=== PATIENT | female | born 1940 | race Asian ===

== ENCOUNTER 2024-01-10 14:45 | Inpatient (IN) | payer MEDICARE ==
[~2024-01-10] VITALS: Ht 157.5 cm; Wt 52.6 kg
[2024-01-10] MEDS ORDERED: Ondansetron 4 MG/2 ML VIAL IV ONE (15:00)
[2024-01-10] MEDS ORDERED: LR 1,000 ML IV ONE ×2 (15:00→18:00)
[2024-01-10] MEDS ORDERED: Morphine 4 MG/ML VIAL IV ONE (15:00)
[2024-01-10] MEDS ORDERED: Acetaminophen 500 MG TAB PO ONE (15:08)
[2024-01-10 15:55] LABS: MEAN CELL VOLUME 99 fl (80.0-100.0); MEAN CORPUSCULAR HEMOGLOBIN 33 pg (27-31); MEAN CORPUSCULAR HGB CONC 33 g/dl (33.0-37.0); PLATELET COUNT 116 K/mm3 (130-400); RED BLOOD COUNT 3.67 M/mm3 (4.10-5.30); REDCELL DISTRIBUTION WIDTH-CV 13.1 % (11.5-14.5)
[2024-01-10 15:59] LABS: HEMATOCRIT 36.3 % (37.0-47.0)
[2024-01-10 16:00] LABS: ALBUMIN 3.6 g/dL (3.4-4.8); BILIRUBIN,TOTAL 0.6 mg/dL (0.2-1.2); CALCIUM 9.6 mg/dL (8.4-10.2); CREATININE, serum 2.35 mg/dL (0.57-1.11); POTASSIUM 4.3 mEq/L (3.5-4.5); TOTAL PROTEIN 7.3 g/dl (6.2-8.1)
[2024-01-10 16:22] LABS: BAND 11 % (0-10); LYMPHOCYTE 25 % (20.0-51.0); NEUTROPHILS 58 % (42.0-75.2); PLATELET ESTIMATE DECREASED (NORMAL)
[2024-01-10 16:23] LABS: ANISOCYTOSIS 1+
[2024-01-10 19:35] LABS: PH 5.5 (5.0-8.5); URINE APPEARANCE CLEAR (CLEAR/HAZY); URINE BLOOD NEGATIVE (NEGATIVE); URINE COLOR YELLOW (YELLOW); URINE GLUCOSE 2+ (NEGATIVE); URINE KETONE NEGATIVE (NEGATIVE); URINE NITRATE NEGATIVE (NEGATIVE); URINE PROTEIN(semi-quant) TRACE (NEGATIVE); URINE UROBILINOGEN 0.2 E.U/dL (0.2-1.0)
[2024-01-10 20:11] LABS: COLLECTION METHOD CLEAN CATCH
[2024-01-10] MEDS ORDERED: BENICAR 20MG TA20 MG PO (20:58)
[2024-01-10] MEDS ORDERED: LIPITOR20 MG PO (20:58)
[2024-01-10] MEDS ORDERED: FARXIGA10 PO (20:58)
[2024-01-10] MEDS ORDERED: Olmesartan 20 MG **** subs to Losartan 50 MG PO SCH (21:00)
[2024-01-10] MEDS ORDERED: Losartan 50 MG TAB PO SCH (21:00)
[2024-01-10] MEDS ORDERED: cefTRIAXone 1 G in Water For Injection,Sterile 10 ML IV SCH (21:00)
[2024-01-10] MEDS ORDERED: SYNTHROID0.05 MG/TA PO (21:00)
[2024-01-10] MEDS ORDERED: Atorvastatin 20 MG TAB PO SCH (21:00)
[2024-01-10 21:28] VITALS: BP_SYST 160
[2024-01-10] MEDS ORDERED: Acetaminophen 325 MG TAB PO PRN (21:30)
[2024-01-10] MEDS ORDERED: NS 1,000 ML IV SCH (21:30)
--- NOTE | 2024-01-10 22:25 | NUR ---
PATIENT ARRIVED TO ROOM 312 VIA WHEELCHAIR FROM THE EMERGENCY ROOM ACCOMPANIED BY DAUGHTER IN LAW AND SON. CURRENTLY STABLE ON ROOM AIR. ALERT AND ORIENTED AND ABLE TO ANSWER ALL QUESTIONS APPROPRIATELY. CALL LIGHT IS WITHIN REACH. BED LOCKED AND IN LOW POSITION.
[2024-01-10 22:30] VITALS: BP 160/73; PULSE 79; TEMP 98.3
--- NOTE | 2024-01-10 23:21 | NUR ---
RECEIVED REPORT FROM LAB THAT PATIENT'S TROPONIN IS NOW FURTHER ELEVATED TO 0.518 FROM HER PREVIOUS LAB VALUE OF 0.050. DENIES ANY CHEST PAIN OR SHORTNESS OF BREATH. INFORMED SHERRY GALEANO APRN OF CRITICAL LAB VALUE, NEW ORDERS TO COME.
[2024-01-10] MEDS ORDERED: Heparin 5,000 UNITS/ML 1 ML VIAL IV PRN (23:30)
[2024-01-10] MEDS ORDERED: Heparin/D5W 250 ML IV SCH (23:30)
[2024-01-10] MEDS ORDERED: Heparin 5,000 UNITS/ML 1 ML VIAL IV ONE (23:30)
[2024-01-11] VITALS (15 sets, daily range): BP systolic 145–173; BP diastolic 57–76; PULSE 59–80; TEMP 97.4–98.5
[2024-01-11 00:07] LABS: INR 1.2 (0.8-3.0); PROTHROMBIN TIME 13.2 SECONDS (9.7-12.8)
[2024-01-11 00:13] LABS: MAGNESIUM 1.9 mg/dL (1.6-2.6); PHOSPHOROUS 3.6 mg/dL (2.3-4.7)
[2024-01-11 00:33] LABS: TROPONIN-I 6 HR POST INITIAL 0.805 ng/mL (0.00-0.033)
--- NOTE | 2024-01-11 00:35 | NUR ---
LAB REPORTED 6 HOUR TROPONIN RECHECK 0.0805. VALUE CALLED TO SHERRY GALEANO APRN
[2024-01-11 07:10] LABS: BASO % 0.4 % (0.0-2.0); EOS # 0.2 K/mm3 (0.0-0.7); EOS % 1.8 % (0.0-4.0); GRAN # 7.2 K/mm3 (1.4-6.5); GRAN % 67.6 % (42.2-75.2); HEMOGLOBIN 10.5 g/dl (12.5-16.0); LYMPH # 2.3 K/mm3 (1.2-3.4); LYMPH % 21.9 % (20.0-51.0); MEAN CELL VOLUME 97 fl (80.0-100.0); MEAN CORPUSCULAR HEMOGLOBIN 33 pg (27-31); MEAN CORPUSCULAR HGB CONC 34 g/dl (33.0-37.0); MEAN PLATELET VOLUME 10.9 fl (7.4-10.4); MONO # 0.8 K/mm3 (0.1-0.6); MONO % 7.6 % (1.7-9.3); PLATELET COUNT 116 K/mm3 (130-400); RED BLOOD COUNT 3.22 M/mm3 (4.10-5.30); REDCELL DISTRIBUTION WIDTH-CV 12.9 % (11.5-14.5)
[2024-01-11 07:11] LABS: HEMATOCRIT 31.2 % (37.0-47.0)
[2024-01-11 07:17] LABS: CALCIUM 9.4 mg/dL (8.4-10.2); CHOLESTEROL RISK RATIO 2.8; CREATININE, serum 2.11 mg/dL (0.57-1.11); POTASSIUM 4.5 mEq/L (3.5-4.5)
--- NOTE | 2024-01-11 07:45 | NUR ---
Patient laying in bed, A&Ox4. VSS. IV CDI, fluids infusing. Right lower arm wound CDI. Dressing intact. Critical troponin called to Dr Sahh and Evette GANN. Reports pain in right lower arm, no pain medication requested. NPO for a possible procedure. Call light within reach. Bed alarm on
[2024-01-11] MEDS ORDERED: Pantoprazole 40 MG in NS 10 ML IV SCH (09:00)
[2024-01-11] MEDS ORDERED: Acetylcysteine 600 MG CAP PO SCH (11:00)
[2024-01-11] MEDS ORDERED: Sodium Bicarbonate/Water,Steri 1,150 ML IV SCH ×2 (11:00→11:15)
--- NOTE | 2024-01-11 14:29 | NUR ---
SEE MERGE FOR PROCEDURE DOCUMENTATION
--- NOTE | 2024-01-11 14:39 | NUR ---
D: Automotive Service Writer stopped by room on rounds. A: Pt was resting and content with by her side. Pt was in good spirits. Pt said she didn't have any needs, would just appreciate prayers. Automotive Service Writer prayed with her and her . Both pt and appreciated the visit. P: Automotive Service Writer informed pt and family that if they needed anything from the flight control manager area to let their nurse know. Automotive Service Writer will follow up as needed.
[2024-01-11] MEDS ORDERED: Midazolam 2 MG/2 ML VIAL IV SCH (14:55)
[2024-01-11] MEDS ORDERED: fentaNYL 50 MCG/ML 2 ML VIAL IV SCH (14:56)
--- NOTE | 2024-01-11 14:57 | NUR ---
Reconciliation Coordinator spoke with patient's son, Kenton (ph#[phone]) and daughter in law, Olga (ph#[phone]) in the hallway outside of patient's room. They confirmed that patient lives here in [place] with her spouse, Singh (ph#[phone]) and sees Dr. Rubalcava for primary care. Patient does not use any DME and is normally independent with ADLS. Olga advised patient has DPOA-[facility] and they will bring in a copy. Kenton advised they are updating it to reflect their move to [place] from [place]. SW met with patient and Singh to confirm the above information and discuss discharge planning. Patient stated she lives at home with Singh and is normally independent. Patient plans to return home at time of discharge. Discharge Plan: Home, pending PT/OT erica
[2024-01-11] MEDS ORDERED: Iohexol 350 - 100 ML VIAL INCOR ONE (15:00)
--- NOTE | 2024-01-11 15:30 | NUR ---
Patient to room 312 from the test lab technician by bed. A&Ox4. VSS. Post op VS monitored. at the bedside. IV CDI, fluids by gravity. Denies pain and discomfort. Nurse oriented the patient to location, call light and room. Flat time in place. No further needs expressed. Call light within reach.
--- NOTE | 2024-01-11 15:36 | NUR ---
PATIENT ALERT AND ORIENTED, DENIES PAIN. PATIENT TRANSFERRED TO BED VIA SLIDEBOARD AND TRANSPORTED TO [facility]. RIGHT GROIN SITE ASSESSED, REMAINS SOFT TO PALPATION AND DRESSING CDI. VITAL SIGNS TAKEN ON ARRIVAL, VSS. PATIENT'S SPOUSE AND SON AT BEDSIDE, AWAITING UPDATE FROM PROVIDER. TRANSFER OF CARE TO SALVADOR, RN. BED TO LOWEST POSITION, X3 BEDRAILS IN PLACE, CALL LIGHT WITHIN REACH. PATIENT INSTRUCTED TO LAY SUPINE AND AVOID INCREASING ABDOMINAL AND GROIN PRESSURE D/T FEMORAL ACCESS. PT VOICED UNDERSTANDING.
[2024-01-11] MEDS ORDERED: LIPITOR 80MG80 MG PO (15:40)
[2024-01-11] MEDS ORDERED: ASPIRIN E.C. 8181 MG PO (15:41)
[2024-01-11] MEDS ORDERED: TOPROL XL 25MG25 MG PO (15:41)
--- NOTE | 2024-01-11 19:08 | NUR ---
EMS to scrap picker the patient to transfer to [facility]. Family at the bedside. RT femoral site CDI, scant amount of blood, free from hematoma. Patient ambulated and voided in the bathroom. A&Ox4. VSS. IV CDI, steev wrap, fluids infusing. PAtient ambulated to the stretcher. No further needs expressed. Report called to Taylor at [facility]
[2024-01-11] MEDS ORDERED: Losartan 50 MG TAB PO SCH (21:00)
[2024-01-11] MEDS ORDERED: Atorvastatin 80 MG TAB PO SCH (21:00)
== END 2024-01-11 19:08 | disposition home or self-care (01) | DRG 281 ==
LOC: COL.ER 14:45 → MEDICAL 21:50
PROVIDERS: Emergency Medicine; Nurse Practitioner Family; ADMIT Internal Medicine
PROC: 4A023N7 Measurement of Cardiac Sampling and Pressure, Left Heart, Percutaneous Approach (ICD-10-PCS; principal; 2024-01-11)
PROC: B2111ZZ Fluoroscopy of Multiple Coronary Arteries using Low Osmolar Contrast (ICD-10-PCS; 2024-01-11)
PROC: B2151ZZ Fluoroscopy of Left Heart using Low Osmolar Contrast (ICD-10-PCS; 2024-01-11)
DX: I21.4 Non-ST elevation (NSTEMI) myocardial infarction (principal); N18.4 Chronic kidney disease, stage 4 (severe); N39.0 Urinary tract infection, site not specified; I65.29 Occlusion and stenosis of unspecified carotid artery; T23.201A Burn of second degree of right hand, unspecified site, initial encounter; I25.10 Atherosclerotic heart disease of native coronary artery without angina pectoris; N05.9 Unspecified nephritic syndrome with unspecified morphologic changes; I08.3 Combined rheumatic disorders of mitral, aortic and tricuspid valves; E03.9 Hypothyroidism, unspecified; D69.6 Thrombocytopenia, unspecified; D63.1 Anemia in chronic kidney disease; E78.5 Hyperlipidemia, unspecified; W18.30XA Fall on same level, unspecified, initial encounter; X10.2XXA Contact with fats and cooking oils, initial encounter; Y92.000 Kitchen of unspecified non-institutional (private) residence as the place of occurrence of the external cause; Z79.890 Hormone replacement therapy; Z88.2 Allergy status to sulfonamides
CPT/HCPCS: C9113; J0696; J1644; J2250; J2405; J3010; J7030; J7120; Q9967

== ENCOUNTER 2024-02-24 14:13 | Emergency (ER) | payer MEDICARE ==
[~2024-02-24] VITALS: Ht 157.5 cm; Wt 56.4 kg
[~2024-02-24 14:13] MED LIST: ASPIRIN E.C. 8181 MG PO; BENICAR 20MG TA20 MG PO; FARXIGA10 PO; LIPITOR 80MG80 MG PO; LIPITOR20 MG PO; SYNTHROID0.05 MG/TA PO; TOPROL XL 25MG25 MG PO
[2024-02-24 14:18] VITALS: TEMP 98.5
[2024-02-24 14:46] LABS: ARTERIAL BLD GAS O2 SATURATION 98.6 % (92-100); ARTERIAL BLOOD GAS BASE EXCESS 0.1 (-2-2); ARTERIAL BLOOD GAS HCO3 24.7 meq/L (22-26); ARTERIAL BLOOD GAS pH 7.41 (7.35-7.45)
[2024-02-24 14:47] LABS: ARTERIAL BLOOD GAS PO2 125.5 mmHg (80-100)
[2024-02-24 15:58] LABS: MEAN CELL VOLUME 96 fl (80.0-100.0); MEAN CORPUSCULAR HGB CONC 33 g/dl (33.0-37.0); MEAN PLATELET VOLUME 10.6 fl (7.4-10.4); PLATELET COUNT 237 K/mm3 (130-400); RED BLOOD COUNT 2.93 M/mm3 (4.10-5.30); REDCELL DISTRIBUTION WIDTH-CV 20.4 % (11.5-14.5)
[2024-02-24 16:01] LABS: INR 1.2 (0.8-3.0); PROTHROMBIN TIME 13.3 SECONDS (9.7-12.8)
[2024-02-24 16:03] LABS: HEMATOCRIT 28.1 % (37.0-47.0); HEMOGLOBIN 9.3 g/dl (12.5-16.0); MEAN CORPUSCULAR HEMOGLOBIN 32 pg (27-31)
[2024-02-24 16:13] LABS: ALBUMIN 2.6 g/dL (3.4-4.8); BILIRUBIN,TOTAL 0.7 mg/dL (0.2-1.2); CALCIUM 8.7 mg/dL (8.4-10.2); MAGNESIUM 1.7 mg/dL (1.6-2.6); POTASSIUM 3.6 mEq/L (3.5-4.5); TOTAL PROTEIN 6.5 g/dl (6.2-8.1)
[2024-02-24 16:26] LABS: COLLECTION METHOD CLEAN CATCH
[2024-02-24 16:33] LABS: TSH w REFLEX 27.983 uIU/mL (0.350-4.940)
[2024-02-24 16:40] LABS: URINE APPEARANCE Clear (CLEAR/HAZY); URINE COLOR YELLOW (YELLOW)
[2024-02-24 16:41] LABS: TROPONIN-I 0.317 ng/mL (0.00-0.033)
[2024-02-24 16:41] LABS: URINE BLOOD TRACE-LYSED (NEGATIVE); URINE GLUCOSE Negative (NEGATIVE); URINE KETONE Negative (NEGATIVE); URINE NITRATE Negative (NEGATIVE); URINE PROTEIN(semi-quant) Negative (NEGATIVE); URINE UROBILINOGEN 0.2 E.U/dL (0.2-1.0)
[2024-02-24 16:54] LABS: CREATININE, serum 2.65 mg/dL (0.57-1.11)
[2024-02-24 17:00] LABS: ANISOCYTOSIS 2+; BAND 4 % (0-10); BASOPHIL 1 % (0-2); LYMPHOCYTE 18 % (20.0-51.0); NEUTROPHILS 67 % (42.0-75.2); NUCLEATED RED BLOOD CELL 1 (0-6); PLATELET ESTIMATE NORMAL (NORMAL)
[2024-02-24] MEDS ORDERED: MULTI-VITAMIN W1 TA1 PO (17:00)
[2024-02-24] MEDS ORDERED: PROTONIX 40MG T40 MG PO (17:05)
[2024-02-24] MEDS ORDERED: BRILINTA90 MG PO (17:06)
[2024-02-24] MEDS ORDERED: VITAMIN C500 MG PO (17:06)
[2024-02-24] MEDS ORDERED: PROAMATINE10 MG PO (17:06)
[2024-02-24] MEDS ORDERED: PHARMASSURE ZIN50 MG PO (17:07)
[2024-02-24] MEDS ORDERED: BUSPAR5 MG PO (17:08)
[2024-02-24] MEDS ORDERED: BUMEX2 MG PO (17:08)
[2024-02-24] MEDS ORDERED: ATARAX 10MG10 MG/TAB PO (17:09)
[2024-02-24] MEDS ORDERED: METAMUCIL3.4 GM/DOS PO (17:09)
[2024-02-24 18:51] VITALS: BP 172/111; PULSE 111
== END 2024-02-24 18:53 | disposition short-term general hospital (02) ==
LOC: COL.ER 14:13
PROVIDERS: Family Medicine
DX: I21.4 Non-ST elevation (NSTEMI) myocardial infarction (principal); J81.1 Chronic pulmonary edema; N18.6 End stage renal disease; Z99.2 Dependence on renal dialysis